=== PATIENT | male | born 1945 | race Caucasian/White ===

== ENCOUNTER → 2017-01-07 | Outpatient (CLI) | payer MEDICARE, OTHER | END | disposition home or self-care (01) | LOC: GMAL 09:52 | PROVIDERS: ATTEND Family Medicine | DX: D51.3 Other dietary vitamin B12 deficiency anemia (principal); E55.9 Vitamin D deficiency, unspecified ==

== ENCOUNTER → 2017-08-17 | Outpatient (CLI) | payer MEDICARE, OTHER | END | disposition home or self-care (01) | LOC: GMAL 10:59 | PROVIDERS: ATTEND Family Medicine | DX: Z12.5 Encounter for screening for malignant neoplasm of prostate (principal); R53.82 Chronic fatigue, unspecified | CPT/HCPCS: 84443; G0103 ==

== ENCOUNTER → 2017-09-07 | Outpatient (CLI) | payer MEDICARE, OTHER | END | disposition home or self-care (01) | LOC: GMAL 10:47 | PROVIDERS: ATTEND Family Medicine | DX: J30.9 Allergic rhinitis, unspecified (principal) ==

== ENCOUNTER → 2018-03-07 | Outpatient (CLI) | payer MEDICARE, OTHER | LOC: GMAL 10:56 | PROVIDERS: ATTEND Family Medicine | DX: D51.3 Other dietary vitamin B12 deficiency anemia (principal); E55.9 Vitamin D deficiency, unspecified ==

== ENCOUNTER → 2018-05-11 | Outpatient (CLI) | payer OTHER ==
--- NOTE | 2018-05-11 09:40 | CT ---
EXAM DESCRIPTION: Upper Extremity: Computed Tomography. CLINICAL HISTORY: LEFT SHOULDER PAIN COMPARISON: None Available. TECHNIQUE: Spiral, axial 2.5 mm scans through the left shoulder without contrast. Coronal and sagittal 2.0 mm reconstructions. Total Exam DLP: 577.18 mGy-cm. This exam was performed according to our departmental CT dose-optimization program which includes automated exposure control, adjustment of the mA and/or kV according to patient size and/or use of iterative reconstruction technique; to reduce radiation dose to as low as reasonably achievable (ALARA). FINDINGS: Minimal hypertrophic changes on the greater tuberosity. Concave defect in the anterior cortex medial to the lesser tuberosity and bicipital groove. Narrowing of the superior glenohumeral joint space and minimal superior migration of the humeral head. Subchondral irregularity of the superior posterior quadrant of the glenoid rim. This can be associated with a labral lesion. Type II curvature of the lateral acromion. Spur on the distal inferior clavicle may be impressing on the rotator cuff, narrowing of the supraspinatus tendon outlet. No fractures are seen. Minimal emphysematous changes in the included left lung. IMPRESSION: 1. Concave defect in the anterior humeral head medial to the lesser tuberosity and bicipital groove. Deformity from a previous posterior shoulder dislocation or direct trauma. 2. 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 Osteochondral defect most likely posterior lateral quadrant of the glenoid fossa. Can be associated with labral tear as well. Recommend follow-up CT arthrography left shoulder. 3. Narrowing of the supraspinatus tendon outlet due to morphology of the lateral acromion and distal clavicle inferior marginal spur abutting the AC joint. Electronically signed by: Cristian Mendoza MD 05/11/2018 9:38 AM CDT
== END ==
LOC: MRI 08:05
PROVIDERS: ATTEND Family Medicine
DX: M25.512 Pain in left shoulder (principal); M21.922 Unspecified acquired deformity of left upper arm

== ENCOUNTER → 2018-05-18 | Outpatient (CLI) | payer OTHER ==
--- NOTE | 2018-05-18 16:27 | CT ---
CT arthrogram left shoulder INDICATION: Shoulder pain pacemaker contraindicating MRI TECHNIQUE: Helical CT images left shoulder post single contrast arthrogram with multiplanar reformats This exam was performed according to our departmental dose-optimization program, which includes automated exposure control, adjustment of the mA and/or kV according to patient size and/or use of iterative reconstruction technique. FINDINGS: Contrast extravasation is noted from the anterior medial capsule which is fairly common in this area. Uncertain location long head bicep due to poor opacification of the tendon sheath. Question medial subluxation/dislocation limited. Tendinopathy and mild thinning of the subscapularis indicating chronic partial tear. There is a healed lateral left rib fracture. No muscle atrophy with minimal marbling diffusely. There is a focal full-thickness tear of the supraspinatus measuring 9 mm in AP dimension by 8 mm in longitudinal dimension with contrast extending into the subacromial and subdeltoid bursa. No full-thickness infraspinatus tear. Mild AC joint hypertrophy. Minimal grade 1 marbling throughout the rotator cuff muscle bellies. Borderline type III morphology of the acromion. Minimal degenerative change the glenohumeral joint. IMPRESSION: Full-thickness focal tear distal supraspinatus critical zone area No advanced muscle atrophy Minimal glenohumeral osteoarthrosis Possible medial subluxation or dislocation long head bicep but limited due to lack of contrast in the tendon sheath Tendinopathy and partial tear subscapularis tendon Cystic change lesser tuberosity often seen with bicep instability and subscapularis tendon pathology Remote healed left rib fracture lateral Electronically signed by: Yogesh Bryant MD 05/18/2018 4:25 PM CDT
--- NOTE | 2018-05-18 20:26 | RAD ---
EXAM DESCRIPTION: Arthrogram Shoulder Left CLINICAL HISTORY: SHOULDER PAIN. Patient has a pacemaker precluding MRI scan. COMPARISON: Post-arthrogram CT scan of the left shoulder same date. TECHNIQUE: The procedure was explained to the patient with risks and benefits. The patient gave verbal and written consent. Patient supine on the fluoroscopic table with left shoulder in external rotation. The anterior mid superior left glenohumeral joint was localized by fluoroscopy. The skin was marked, then prepped and draped in a sterile fashion. Intradermal, subcutaneous and intramuscular 1% lidocaine was given for topical anesthesia. A 1.5 inch, 25-gauge needle was introduced into the anterior superior left glenohumeral joint capsule under fluoroscopic visualization. A test injection of 3 cc of mixture of non-ionic contrast and was performed under fluoroscopy. Additional 12 CC of contrast mixture non-ionic contrast/saline/xylocaine was then injected under fluoroscopy. Contrast migrated between the scapula and the subscapularis muscle Initially, then began to feel the glenohumeral joint. The patient tolerated the procedure well. Active exercise. Patient was transferred to the CT suite for spiral-axial and reconstruction imaging. No immediate complications. One AP image of the left shoulder and external rotation obtained. Total fluoroscopic time was 1 minute DAP: 5.01 Gy-cm2. IMPRESSION: 1. Successful, fluoroscopic-guided arthrogram of the left shoulder prior to CT scan. No immediate complications.. Electronically signed by: Cristian Mendoza MD 05/18/2018 8:24 PM CDT
== END ==
LOC: CT 09:48
PROVIDERS: ATTEND Family Medicine
DX: M75.102 Unspecified rotator cuff tear or rupture of left shoulder, not specified as traumatic (principal); M19.012 Primary osteoarthritis, left shoulder

== ENCOUNTER → 2018-09-07 | Outpatient (CLI) | payer OTHER | LOC: GMAL 11:12 | PROVIDERS: ATTEND Family Medicine | DX: D51.3 Other dietary vitamin B12 deficiency anemia (principal); E55.9 Vitamin D deficiency, unspecified ==

== ENCOUNTER → 2019-03-07 | Outpatient (CLI) | payer OTHER | LOC: GMAL 10:45 | PROVIDERS: ATTEND Family Medicine | DX: D51.3 Other dietary vitamin B12 deficiency anemia (principal); I10 Essential (primary) hypertension; E78.2 Mixed hyperlipidemia; Z12.5 Encounter for screening for malignant neoplasm of prostate | CPT/HCPCS: 82607; G0103 ==

== ENCOUNTER → 2019-09-18 | Outpatient (CLI) | payer OTHER | END | disposition home or self-care (01) | LOC: GMAL 10:11 | PROVIDERS: ATTEND Family Medicine | DX: E55.9 Vitamin D deficiency, unspecified (principal) ==

== ENCOUNTER → 2020-03-12 | Outpatient (CLI) | payer OTHER | LOC: GMAL 11:28 | PROVIDERS: ATTEND Family Medicine | DX: D51.3 Other dietary vitamin B12 deficiency anemia (principal); N40.0 Benign prostatic hyperplasia without lower urinary tract symptoms; E55.9 Vitamin D deficiency, unspecified; I10 Essential (primary) hypertension; E78.49 Other hyperlipidemia ==

== ENCOUNTER → 2020-09-29 | Outpatient (CLI) | payer OTHER | LOC: GMAL 10:36 | PROVIDERS: ATTEND Family Medicine | DX: D51.3 Other dietary vitamin B12 deficiency anemia (principal); E55.9 Vitamin D deficiency, unspecified; Z79.899 Other long term (current) drug therapy; E78.2 Mixed hyperlipidemia; R97.20 Elevated prostate specific antigen [PSA] ==